=== PATIENT | male | born 1980 | race Caucasian/White ===

== ENCOUNTER 2018-07-22 11:45 | Emergency (ER) | payer OTHER ==
[~2018-07-22] VITALS: Ht 193 cm; Wt 81.7 kg
[~2018-07-22 11:45] MED LIST: Augmentin 875-1 EACH PO
== END 2018-07-22 12:54 | disposition home or self-care (01) ==
LOC: ER 11:45
DX: T40.2X1A Poisoning by other opioids, accidental (unintentional), initial encounter (principal); F10.10 Alcohol abuse, uncomplicated; F17.210 Nicotine dependence, cigarettes, uncomplicated
CPT/HCPCS: 36415; 99284

== ENCOUNTER 2019-03-21 12:15 | Emergency (ER) | payer OTHER ==
[~2019-03-21] VITALS: Ht 193 cm; Wt 81.7 kg
== END 2019-03-21 14:35 | disposition home or self-care (01) ==
LOC: ER 12:15
DX: S00.12XA Contusion of left eyelid and periocular area, initial encounter (principal); S00.11XA Contusion of right eyelid and periocular area, initial encounter; H11.31 Conjunctival hemorrhage, right eye; Y04.8XXA Assault by other bodily force, initial encounter
CPT/HCPCS: 70450; 99284-25

== ENCOUNTER 2023-03-24 20:43 | Observation (INO) | payer OTHER ==
[~2023-03-24] VITALS: Ht 193 cm; Wt 90.7 kg
[2023-03-24 21:39] LABS: BASOPHILS ABSOLUTE AUTO 0.03 K/mm3 (0.00-0.23); BASOPHILS PERCENT AUTO 0 % (0-2); EOSINOPHILS ABSOLUTE AUTO 0.32 K/mm3 (0.00-0.68); EOSINOPHILS PERCENT AUTO 5 % (0-6); Hematocrit 40.3 % (37.0-53.0); Hemoglobin 14.2 g/dL (13.5-17.5); IMMATURE GRAN ABSOLUTE AUTO 0.01 K/mm3 (0.00-0.10); IMMATURE GRAN PERCENT AUTO 0 % (0-1); LYMPHOCYTES ABSOLUTE AUTO 3.02 K/mm3 (0.84-5.20); LYMPHOCYTES PERCENT AUTO 45 % (21-46); MONOCYTES ABSOLUTE AUTO 0.83 K/mm3 (0.16-1.47); MONOCYTES PERCENT AUTO 12 % (4-13); Mean Corpuscular HGB 31.8 pg (26.0-34.0); Mean Corpuscular HGB Conc 35.2 g/dL (31.5-36.5); Mean Corpuscular Volume 90 fL (80-100); Mean Platelet Volume 9.5 fL (9.1-12.4); NEUTROPHILS ABSOLUTE AUTO 2.48 K/mm3 (1.96-9.15); NEUTROPHILS PERCENT AUTO 37 % (41-73); Platelet Count 301 K/mm3 (150-400); RDW Coefficient Variation 12.3 % (11.7-14.2); Red Blood Cell Count 4.46 M/mm3 (4.30-5.90); White Blood Cell Count 6.69 K/mm3 (4.00-11.30)
[2023-03-24 21:57] LABS: Alanine Aminotransfer (ALT/SGP 51 U/L (12-78); Albumin, Blood 3.8 g/dL (3.4-5.0); Alk Phos 121 U/L (50-136); Anion Gap 10 mmol/L (6-16); Aspartate Aminotrans (AST/SGOT 34 U/L (12-37); Bilirubin, Total 0.5 mg/dL (0.1-1.0); Blood Urea Nitrogen 18 mg/dL (8-24); Bun/Creatinine Ratio 21.4 (12.0-20.0); CO2, Blood 24 mmol/L (21-32); Calcium, Blood 8.5 mg/dL (8.5-10.1); Chloride, Blood 109 mmol/L (98-108); Creatinine, Blood 0.84 mg/dL (0.60-1.20); Globulin, Blood 3.7 g/dL (2.2-4.0); Glomerular Filtration Rate 112 (60-); Glucose, Blood 102 mg/dL (70-99); Potassium, Blood 3.7 mmol/L (3.5-5.5); Sodium, Blood 143 mmol/L (136-145); Total Protein, Blood 7.5 g/dL (6.4-8.2)
[2023-03-24 22:14] LABS: Ethanol (Alcohol), Blood, Med 188 mg/dL; Salicylate 2.6 mg/dL (2.8-20.0)
[2023-03-24 22:47] LABS: Acetaminophen, Random <2.0 ug/mL (10.0-30.0)
[2023-03-24 23:25] LABS: Source, Urine Clean Catch
[2023-03-24 23:30] LABS: Appearance, Urine Clear (Clear); Bilirubin, Urine Neg (Neg); Blood, Urine Neg (Neg); Color, Urine Yellow (P-Yellow); Glucose Qualitative, Urine Neg (Neg); Ketones, Urine Neg (Neg); Leukocyte Esterase, Urine Neg (Neg); Nitrite, Urine Neg (Neg); Protein, Urine 1+ (Neg); Urobilinogen, Urine NORM (Normal)
[2023-03-24 23:44] LABS: U Cannabinoids Screen DETECTED; U Methamphetamine Screen DETECTED
[2023-03-24 23:45] LABS: U Amphetamine Screen Not Detected; U Barbituate Screen Not Detected; U Benzodiazapine Screen Not Detected; U Buprenorphine Screen Not Detected; U Cocaine Screen Not Detected; U Methadone Screen Not Detected; U Opiates Screen Not Detected; U Oxycodone Screen Not Detected; U Phencyclidine Screen Not Detected; U Propoxyphene Screen Not Detected
[2023-03-25 11:00] VITALS: BP 128/86
== END 2023-03-25 11:15 | disposition home or self-care (01) ==
LOC: ER 20:43 → EOR 20:44
PROVIDERS: Emergency Medicine; ADMIT Student in an Organized Health Care Education/Training Program
DX: F34.1 Dysthymic disorder (principal); F17.200 Nicotine dependence, unspecified, uncomplicated; F10.129 Alcohol abuse with intoxication, unspecified; F15.10 Other stimulant abuse, uncomplicated; F41.9 Anxiety disorder, unspecified; Z59.00 Homelessness unspecified
CPT/HCPCS: 80053; 85025; 93005; 93010; 99285-25; G0378; G0480

== ENCOUNTER 2023-04-02 13:24 | Emergency (ER) | payer OTHER ==
[~2023-04-02] VITALS: Ht 193 cm; Wt 81.7 kg
[2023-04-02 13:33] VITALS: BP 120/84
[2023-04-02] MEDS ORDERED: CEPH500 PO (14:56)
== END 2023-04-02 15:01 | disposition home or self-care (01) ==
LOC: ER 13:24
DX: L03.031 Cellulitis of right toe (principal); F17.200 Nicotine dependence, unspecified, uncomplicated
CPT/HCPCS: 99283

== ENCOUNTER 2023-10-12 12:58 | Emergency (ER) | payer OTHER ==
[~2023-10-12] VITALS: Ht 193 cm; Wt 90.7 kg
[~2023-10-12 12:58] MED LIST changes: +CEPH500 PO
[2023-10-12 13:36] VITALS: BP 146/102
== END 2023-10-12 14:36 | disposition left against medical advice (07) ==
LOC: ER 12:58
DX: L02.31 Cutaneous abscess of buttock (principal); Z53.29 Procedure and treatment not carried out because of patient's decision for other reasons
CPT/HCPCS: 99281

== ENCOUNTER → 2023-10-13 | Outpatient (CLI) | payer OTHER | END | disposition home or self-care (01) | LOC: LAB SHORT 17:25 → LAB 17:25 | DX: L03.317 Cellulitis of buttock (principal); L02.31 Cutaneous abscess of buttock | CPT/HCPCS: 87070; 87075; 87077; 87147; 87186; 87205 ==

== ENCOUNTER → 2023-12-22 | Outpatient (CLI) | payer OTHER ==
[~2023-12-22] MED LIST changes: +AMOCLA875 PO
== END | disposition home or self-care (01) ==
LOC: LAB 15:30 → LAB SHORT 15:30
DX: T80.29XA Infection following other infusion, transfusion and therapeutic injection, initial encounter (principal)
CPT/HCPCS: 87070; 87075; 87077; 87147; 87186; 87205

== ENCOUNTER 2024-03-29 19:01 | Emergency (ER) | payer OTHER ==
[~2024-03-29] VITALS: Ht 190.5 cm; Wt 77.1 kg
[~2024-03-29 19:01] MED LIST changes: +Bactrim Ds Tab1 EACH PO; +SULTRIDS PO
[2024-03-29] MEDS ORDERED: Ondansetron HCl 2 MG / ML 2ML Vial IV ONE (19:20)
[2024-03-29] MEDS ORDERED: Lactated Ringer's 1,000 ML IV ONE ×3 (19:20→21:35)
[2024-03-29 19:44] LABS: BASOPHILS ABSOLUTE AUTO 0.02 K/mm3 (0.00-0.23); BASOPHILS PERCENT AUTO 0 % (0-2); EOSINOPHILS ABSOLUTE AUTO 0.02 K/mm3 (0.00-0.68); EOSINOPHILS PERCENT AUTO 0 % (0-6); Hematocrit 37.8 % (37.0-53.0); Hemoglobin 12.6 g/dL (13.5-17.5); IMMATURE GRAN ABSOLUTE AUTO 0.03 K/mm3 (0.00-0.10); IMMATURE GRAN PERCENT AUTO 1 % (0-1); LYMPHOCYTES ABSOLUTE AUTO 0.54 K/mm3 (0.84-5.20); LYMPHOCYTES PERCENT AUTO 8 % (21-46); MONOCYTES ABSOLUTE AUTO 0.05 K/mm3 (0.16-1.47); MONOCYTES PERCENT AUTO 1 % (4-13); Mean Corpuscular HGB 31.3 pg (26.0-34.0); Mean Corpuscular HGB Conc 33.3 g/dL (31.5-36.5); Mean Corpuscular Volume 94 fL (80-100); Mean Platelet Volume 9.4 fL (9.1-12.4); NEUTROPHILS ABSOLUTE AUTO 5.82 K/mm3 (1.96-9.15); NEUTROPHILS PERCENT AUTO 90 % (41-73); Platelet Count 224 K/mm3 (150-400); Red Blood Cell Count 4.03 M/mm3 (4.30-5.90); White Blood Cell Count 6.48 K/mm3 (4.00-11.30)
[2024-03-29 19:57] LABS: Albumin, Blood 3.3 g/dL (3.4-5.0); Bilirubin, Total 0.8 mg/dL (0.1-1.0); Calcium, Blood 8.2 mg/dL (8.5-10.1); Creatinine, Blood 1.2 mg/dL (0.60-1.20); Globulin, Blood 3.2 g/dL (2.2-4.0); Magnesium, Blood 1.9 mg/dL (1.6-2.4); Total Protein, Blood 6.5 g/dL (6.4-8.2)
[2024-03-29] MEDS ORDERED: Acetaminophen 500 MG Tab PO ONE (21:05)
[2024-03-29 22:30] VITALS: BP 110/69
== END 2024-03-29 22:55 | disposition home or self-care (01) ==
LOC: ER 19:01
PROVIDERS: Physician Assistant
DX: T67.5XXA Heat exhaustion, unspecified, initial encounter (principal); X30.XXXA Exposure to excessive natural heat, initial encounter; E86.0 Dehydration; R11.11 Vomiting without nausea; F12.10 Cannabis abuse, uncomplicated; F17.210 Nicotine dependence, cigarettes, uncomplicated; Z79.899 Other long term (current) drug therapy
CPT/HCPCS: 80053; 83735; 85025; 96361; 96374; 99284-25; A9270; J2405; J7120

== ENCOUNTER 2024-06-28 23:23 | Inpatient (IN) | payer OTHER ==
[~2024-06-28] VITALS: Ht 193 cm; Wt 75.0 kg
[~2024-06-28 23:23] MED LIST changes: +ACET325 PO; +VISBIOME 112.51 EACH PO
[2024-06-29] MEDS ORDERED: CeFAZolin Sodium 2,000 MG in NS 100 ML IV ONE (06:40)
[2024-06-29] MEDS ORDERED: CefTRIAXone Sodium 1,000 MG in NS 50 ML IV ONE (06:40)
[2024-06-29] MEDS ORDERED: Clindamycin 900mg in D5W 50ML 50 ML IV ONE ×2 (06:40→10:45)
[2024-06-29 07:05] LABS: BASOPHILS ABSOLUTE AUTO 0.04 K/mm3 (0.00-0.23); BASOPHILS PERCENT AUTO 0 % (0-2); EOSINOPHILS ABSOLUTE AUTO 0.35 K/mm3 (0.00-0.68); EOSINOPHILS PERCENT AUTO 2 % (0-6); Hematocrit 36.4 % (37.0-53.0); Hemoglobin 12.2 g/dL (13.5-17.5); IMMATURE GRAN ABSOLUTE AUTO 0.05 K/mm3 (0.00-0.10); IMMATURE GRAN PERCENT AUTO 0 % (0-1); LYMPHOCYTES PERCENT AUTO 17 % (21-46); MONOCYTES ABSOLUTE AUTO 1.67 K/mm3 (0.16-1.47); MONOCYTES PERCENT AUTO 10 % (4-13); Mean Corpuscular HGB 30.7 pg (26.0-34.0); Mean Corpuscular HGB Conc 33.5 g/dL (31.5-36.5); Mean Corpuscular Volume 92 fL (80-100); Mean Platelet Volume 8.7 fL (9.1-12.4); NEUTROPHILS ABSOLUTE AUTO 11.36 K/mm3 (1.96-9.15); NEUTROPHILS PERCENT AUTO 70 % (41-73); Platelet Count 349 K/mm3 (150-400); RDW Coefficient Variation 13.2 % (11.7-14.2); RDW Standard Deviation 44.9 fL (35.1-46.3); Red Blood Cell Count 3.97 M/mm3 (4.30-5.90); White Blood Cell Count 16.17 K/mm3 (4.00-11.30)
[2024-06-29 07:27] LABS: Albumin, Blood 2.7 g/dL (3.4-5.0); Albumin/Globulin Ratio 0.6 (0.8-1.8); Bilirubin, Total 0.7 mg/dL (0.1-1.0); Bun/Creatinine Ratio 15.4 (12.0-20.0); Calcium, Blood 8.8 mg/dL (8.5-10.1); Creatinine, Blood 0.72 mg/dL (0.60-1.20); Globulin, Blood 4.8 g/dL (2.2-4.0); Potassium, Blood 3.6 mmol/L (3.5-5.5); Total Protein, Blood 7.5 g/dL (6.4-8.2)
[2024-06-29] MEDS ORDERED: OxyCODONE HCL 5 MG TAB PO PRN (10:10)
[2024-06-29] MEDS ORDERED: Acetaminophen 325 MG TABLET PO PRN (10:10)
[2024-06-29] MEDS ORDERED: Ketorolac Tromethamine 30mg Vial IV PRN (10:10)
[2024-06-29] MEDS ORDERED: FLU VACC TS2024-25(6MOS UP)/PF 45 MCG/0.5 ML SYRINGE IM SCH (10:10)
[2024-06-29] MEDS ORDERED: Vancomycin HCL 1,750 MG in NS 500 ML IV ONE (10:40)
[2024-06-29 14:35] VITALS: BP 113/71
[2024-06-29] MEDS ORDERED: NS 250 ML IV PRN (15:35)
[2024-06-29] MEDS ORDERED: ATOR20 PO (15:49)
[2024-06-29] MEDS ORDERED: CeFAZolin Sodium 2,000 MG in NS 100 ML IV SCH (16:00)
[2024-06-29] MEDS ORDERED: ATOR80 PO (17:00)
--- NOTE | 2024-06-29 17:00 | NUR ---
PT ADMITTED TO ROOM 338 AT 1425 FROM ED, WHEELCHAIR TO BED INDEPENDANT, STEADY ON FEET. A/O X4, PLEASANT AND COOPERATIVE. ORIENTED TO ROOM SET UP, CALL LIGHT AND SAFETY, WOUNDS WITH PACKING AND NO EXTERNAL DRESSING PRESENT, RN REWRAPPED AND SECURES. GOT PT FOOD AND FLUIDS.
[2024-06-29 19:45] VITALS: BP 122/88
[2024-06-29] MEDS ORDERED: Vancomycin HCL 1,500 MG in NS 250 ML IV SCH (23:00)
--- NOTE | 2024-06-30 05:18 | NUR ---
SHIFT SUMMARY NOC PT A/O X 4. PLEASANT AND COOPERATIVE WITH CARE. VSS. NO ACUTE CHANGES TO REPORT. WOUND DRESSINGS ON L BICEP AND RFA IN PLACE C/D/I. PT RECEIVING IV ABX FOR CELLULITIS IN BOTH. WOUND CULTURE STILL UNCOLLECTED AT THIS TIME. PT USING BEDSIDE URINAL INDEPENDENTLY AT NIGHT. ON CONTACT ISOLATION FOR MRSA. PT HAS NOT REQUESTED PAIN RX THUS FAR. PT CURRENTLY RESTING WITH BED IN LOWEST POSITION, AND CALL LIGHT WITHIN REACH.
[2024-06-30 05:35] LABS: BASOPHILS ABSOLUTE AUTO 0.04 K/mm3 (0.00-0.23); BASOPHILS PERCENT AUTO 0 % (0-2); EOSINOPHILS ABSOLUTE AUTO 0.31 K/mm3 (0.00-0.68); EOSINOPHILS PERCENT AUTO 3 % (0-6); Hematocrit 33.9 % (37.0-53.0); Hemoglobin 11.4 g/dL (13.5-17.5); IMMATURE GRAN ABSOLUTE AUTO 0.03 K/mm3 (0.00-0.10); IMMATURE GRAN PERCENT AUTO 0 % (0-1); LYMPHOCYTES ABSOLUTE AUTO 2.43 K/mm3 (0.84-5.20); LYMPHOCYTES PERCENT AUTO 26 % (21-46); MONOCYTES ABSOLUTE AUTO 0.83 K/mm3 (0.16-1.47); MONOCYTES PERCENT AUTO 9 % (4-13); Mean Corpuscular HGB 30.8 pg (26.0-34.0); Mean Corpuscular HGB Conc 33.6 g/dL (31.5-36.5); Mean Corpuscular Volume 92 fL (80-100); Mean Platelet Volume 8.5 fL (9.1-12.4); NEUTROPHILS ABSOLUTE AUTO 5.89 K/mm3 (1.96-9.15); NEUTROPHILS PERCENT AUTO 62 % (41-73); Platelet Count 343 K/mm3 (150-400); RDW Coefficient Variation 13.2 % (11.7-14.2); RDW Standard Deviation 44.4 fL (35.1-46.3); White Blood Cell Count 9.53 K/mm3 (4.00-11.30)
[2024-06-30 06:41] LABS: Albumin, Blood 2.5 g/dL (3.4-5.0); Albumin/Globulin Ratio 0.5 (0.8-1.8); Bilirubin, Total 0.5 mg/dL (0.1-1.0); Bun/Creatinine Ratio 16.9 (12.0-20.0); Calcium, Blood 8.9 mg/dL (8.5-10.1); Creatinine, Blood 0.65 mg/dL (0.60-1.20); Globulin, Blood 4.6 g/dL (2.2-4.0); Potassium, Blood 3.9 mmol/L (3.5-5.5); Total Protein, Blood 7.1 g/dL (6.4-8.2)
[2024-06-30 07:58] VITALS: BP 118/85
[2024-06-30] MEDS ORDERED: Enoxaparin 40 MG/0.4 ML SYR SC SCH (09:00)
[2024-06-30] MEDS ORDERED: Lactobacil 2-S.Thermo-Bifido 1 1 Cap PO SCH (09:00)
[2024-06-30 15:16] VITALS: BP 106/55
--- NOTE | 2024-06-30 17:52 | NUR ---
SHIFT SUMMARY: PT A/O X4. PLEASANT AND COOPERATIVE WITH CARE. WOUND CULTURES OBTAINED AND SENT THIS SHIFT FROM [facility] WOUNDS AND NARES. WOUNDS CLEANSED AND REDRESSED THIS SHIFT. MEDICATED FOR PAIN PRIOR TO WOUND CHANGE. ON CONTACT PRECAUTIONS. PT MOTHER IN TO SEE PT THIS AM AND EVENING. STATES SHE BELIEVES PT IS GOING THROUGH W/D. IV ABX COMPLETED W/O COMPLICATIONS. VSS. NO FURTHER C/O PAIN THIS SHIFT. SBA TO RESTROOM. CALL LIGHT IN REACH. BED IN LOWEST POSITION.
[2024-06-30 17:57] LABS: HIV 1,2 COMBO ANTIGEN/ANTIBODY Negative (Negative)
[2024-06-30 20:21] VITALS: BP 123/75
[2024-06-30] MEDS ORDERED: Atorvastatin 40 MG Tab PO SCH (21:00)
[2024-06-30 23:55] LABS: Vancomycin, Trough 10.5 ug/mL (5.0-10.0)
[2024-07-01 03:24] VITALS: BP 119/74
--- NOTE | 2024-07-01 06:16 | NUR ---
SHIFT SUMMARY PT IS ALERT AND ORIENTED TIMES 4. PT IS RECEPTIVE TO CARE AND ABLE TO AMBULATE INDEPENDENTLY AND USE BEDSIDE URINAL AT NIGHT. CONTACT ISOLATION FOR MRSA. PT ABLE TO MAKE NEEDS KNOWN. PT CURRENTLY RESTING WITH BED IN LOWEST POSITION, AND CALL LIGHT WITHIN REACH. PT A/O X 4. PLEASANT AND COOPERATIVE WITH CARE. VSS. NO ACUTE CHANGES TO REPORT. WOUND DRESSINGS ON L BICEP AND RFA IN PLACE C/D/I. PT RECEIVING IV ABX FOR CELLULITIS IN BOTH. WOUND CULTURE STILL UNCOLLECTED AT THIS TIME. PT USING BEDSIDE URINAL INDEPENDENTLY AT NIGHT. ON CONTACT ISOLATION FOR MRSA. PT HAS NOT REQUESTED PAIN RX THUS FAR. PT CURRENTLY RESTING WITH BED IN LOWEST POSITION, AND CALL LIGHT WITHIN REACH.
[2024-07-01 07:31] VITALS: BP 115/73
[2024-07-01 08:47] LABS: BASOPHILS ABSOLUTE AUTO 0.04 K/mm3 (0.00-0.23); BASOPHILS PERCENT AUTO 1 % (0-2); EOSINOPHILS ABSOLUTE AUTO 0.35 K/mm3 (0.00-0.68); EOSINOPHILS PERCENT AUTO 4 % (0-6); Hematocrit 36.9 % (37.0-53.0); Hemoglobin 12.1 g/dL (13.5-17.5); IMMATURE GRAN ABSOLUTE AUTO 0.02 K/mm3 (0.00-0.10); IMMATURE GRAN PERCENT AUTO 0 % (0-1); LYMPHOCYTES PERCENT AUTO 25 % (21-46); MONOCYTES ABSOLUTE AUTO 0.82 K/mm3 (0.16-1.47); MONOCYTES PERCENT AUTO 9 % (4-13); Mean Corpuscular HGB 30.3 pg (26.0-34.0); Mean Corpuscular HGB Conc 32.8 g/dL (31.5-36.5); Mean Corpuscular Volume 93 fL (80-100); Mean Platelet Volume 8.7 fL (9.1-12.4); NEUTROPHILS ABSOLUTE AUTO 5.38 K/mm3 (1.96-9.15); NEUTROPHILS PERCENT AUTO 61 % (41-73); Platelet Count 389 K/mm3 (150-400); RDW Standard Deviation 44.3 fL (35.1-46.3); Red Blood Cell Count 3.99 M/mm3 (4.30-5.90); White Blood Cell Count 8.81 K/mm3 (4.00-11.30)
[2024-07-01 09:19] LABS: Bun/Creatinine Ratio 13.2 (12.0-20.0); Calcium, Blood 8.9 mg/dL (8.5-10.1); Creatinine, Blood 0.53 mg/dL (0.60-1.20); Potassium, Blood 3.5 mmol/L (3.5-5.5)
[2024-07-01 14:22] VITALS: BP 135/82
--- NOTE | 2024-07-01 17:33 | NUR ---
SHIFT SUMMARY; NO ACUTE CHANGES IN CONDITION NOTED DURING DAY. PATIENT VERY HUNGRY DURING DAY. ASKING REPEATEDLY FOR SNACKS AND DRINKS ALL DAY. WOUND CARE TO LEFT AND RIGHT ARMS DONE. PATIENT REFUSES SHOWER. VITAL SIGNS ARE STABLE AND WNL. PLAN FOR ANTIBIOTIC THERAPY AND THEN DC.
[2024-07-01 19:54] VITALS: BP 123/75
[2024-07-01 23:17] LABS: Vancomycin, Trough 9.3 ug/mL (5.0-10.0)
[2024-07-02 04:21] VITALS: BP 134/91
[2024-07-02 07:54] VITALS: BP 131/88
[2024-07-02] MEDS ORDERED: VISBIOME 112.51 EACH PO (12:25)
[2024-07-02] MEDS ORDERED: CEPH500 PO (12:26)
[2024-07-02] MEDS ORDERED: TRAM50 PO (12:26)
[2024-07-02] MEDS ORDERED: Acetaminophen650 M1 PO (12:26)
--- NOTE | 2024-07-02 13:44 | NUR ---
DISCHARE SUMMARY: PT DISCHARGED AT 1340, PT GOT DRESSED AND AMBULATED INTO WHEELCHAIR. UNDERSTOOD IMPORTANCE OF TAKING THE ENTIRE ANTIBIOTIC REGIMENT PRESCRIBED. UNDERSTOOD THE EDUCATION AND IMPORTANCE OF PCP FOLLOW UP. AMBULATED SELF OUT OF WHEELCHAIR FROM [facility] ENTR[facility]. IV REMOVED WITH NO ISSUE.
--- NOTE | 2024-07-02 14:18 | NUR ---
THIS CLARIFIER OPERATOR HELPER HAS REVIEWED AND AGREES WITH ALL NOTES AND ASSESSMENTS BY FLORENTIN NAIDU.
== END 2024-07-02 13:52 | disposition home or self-care (01) | DRG 872 ==
LOC: ER 23:23 → ERHOLD 06-29 10:04 → MEDS 06-29 14:27
PROVIDERS: Emergency Medicine; Registered Nurse; ADMIT Hospitalist
PROC: 0J9F3ZZ Drainage of Left Upper Arm Subcutaneous Tissue and Fascia, Percutaneous Approach (ICD-10-PCS; principal; 2024-06-29)
PROC: 0J9D3ZZ Drainage of Right Upper Arm Subcutaneous Tissue and Fascia, Percutaneous Approach (ICD-10-PCS; 2024-06-29)
PROC: 3E03329 Introduction of Other Anti-infective into Peripheral Vein, Percutaneous Approach (ICD-10-PCS; 2024-06-29)
DX: A41.02 Sepsis due to Methicillin resistant Staphylococcus aureus (principal); L03.114 Cellulitis of left upper limb; L03.115 Cellulitis of right lower limb; L02.414 Cutaneous abscess of left upper limb; F15.20 Other stimulant dependence, uncomplicated; Z59.00 Homelessness unspecified; F10.20 Alcohol dependence, uncomplicated; G40.909 Epilepsy, unspecified, not intractable, without status epilepticus; F41.9 Anxiety disorder, unspecified; F32.A Depression, unspecified; F17.210 Nicotine dependence, cigarettes, uncomplicated; Z79.899 Other long term (current) drug therapy; Z98.890 Other specified postprocedural states
CPT/HCPCS: 10061; 36415; 73201; 80048; 80053; 80202; 83605; 85025; 86141; 87040; 87070; 87075; 87147; 87205; 87389; 96365-59; 96367-59; 96375-59; 99284-25; A9270; G0378; J0690; J0696; J1650; J3370; J7040; J7050; Q9967

== ENCOUNTER 2024-07-04 03:01 | Emergency (ER) | payer OTHER ==
[~2024-07-04] VITALS: Ht 193 cm; Wt 75.3 kg
[~2024-07-04 03:01] MED LIST changes: +ATOR20 PO; +ATOR80 PO; +Acetaminophen650 M1 PO; +TRAM50 PO
[2024-07-04 05:06] VITALS: BP 139/89
== END 2024-07-04 05:08 | disposition home or self-care (01) ==
LOC: ER 03:01
DX: L02.414 Cutaneous abscess of left upper limb (principal); F17.210 Nicotine dependence, cigarettes, uncomplicated; Z79.899 Other long term (current) drug therapy
CPT/HCPCS: 99282

== ENCOUNTER 2024-08-14 12:36 | Emergency (ER) | payer OTHER ==
[~2024-08-14] VITALS: Ht 193 cm; Wt 72.6 kg
[~2024-08-14 12:36] MED LIST changes: +CLIN150 PO; +MONDOXYNE NL100 MG PO
[2024-08-14 12:41] VITALS: BP 133/87
[2024-08-14] MEDS ORDERED: CLIN150 PO (12:43)
== END 2024-08-14 12:54 | disposition home or self-care (01) ==
LOC: ER 12:36
DX: L02.512 Cutaneous abscess of left hand (principal); G40.909 Epilepsy, unspecified, not intractable, without status epilepticus; F17.210 Nicotine dependence, cigarettes, uncomplicated; Z86.14 Personal history of Methicillin resistant Staphylococcus aureus infection; Z59.89 Other problems related to housing and economic circumstances; Z79.899 Other long term (current) drug therapy
CPT/HCPCS: 99282

== ENCOUNTER 2024-09-11 12:35 | Emergency (ER) | payer OTHER ==
[~2024-09-11] VITALS: Ht 193 cm; Wt 86.2 kg
[2024-09-11] MEDS ORDERED: Metoclopramide HCl 5MG / ML 2ML Vial IM ONE (13:25)
[2024-09-11] MEDS ORDERED: Droperidol 5 mg/2 ml Vial IM ONE (13:25)
[2024-09-11] MEDS ORDERED: NS 1,000 ML IV SCH (13:45)
[2024-09-11 15:10] LABS: BASOPHILS ABSOLUTE AUTO 0.02 K/mm3 (0.00-0.23); BASOPHILS PERCENT AUTO 0 % (0-2); EOSINOPHILS ABSOLUTE AUTO 0.04 K/mm3 (0.00-0.68); EOSINOPHILS PERCENT AUTO 1 % (0-6); Hematocrit 40.1 % (37.0-53.0); Hemoglobin 13.1 g/dL (13.5-17.5); IMMATURE GRAN ABSOLUTE AUTO 0.01 K/mm3 (0.00-0.10); IMMATURE GRAN PERCENT AUTO 0 % (0-1); LYMPHOCYTES ABSOLUTE AUTO 1.54 K/mm3 (0.84-5.20); LYMPHOCYTES PERCENT AUTO 26 % (21-46); MONOCYTES ABSOLUTE AUTO 0.72 K/mm3 (0.16-1.47); MONOCYTES PERCENT AUTO 12 % (4-13); Mean Corpuscular HGB 30.2 pg (26.0-34.0); Mean Corpuscular HGB Conc 32.7 g/dL (31.5-36.5); Mean Corpuscular Volume 92 fL (80-100); Mean Platelet Volume 8.6 fL (9.1-12.4); NEUTROPHILS ABSOLUTE AUTO 3.53 K/mm3 (1.96-9.15); NEUTROPHILS PERCENT AUTO 60 % (41-73); Platelet Count 319 K/mm3 (150-400); RDW Coefficient Variation 13.7 % (11.7-14.2); RDW Standard Deviation 46.7 fL (35.1-46.3); Red Blood Cell Count 4.34 M/mm3 (4.30-5.90); White Blood Cell Count 5.86 K/mm3 (4.00-11.30)
[2024-09-11 15:26] LABS: Albumin, Blood 3.5 g/dL (3.4-5.0); Albumin/Globulin Ratio 0.8 (0.8-1.8); Bilirubin, Total 0.6 mg/dL (0.1-1.0); Bun/Creatinine Ratio 28.9 (12.0-20.0); Calcium, Blood 9.6 mg/dL (8.5-10.1); Creatinine, Blood 0.66 mg/dL (0.60-1.20); Globulin, Blood 4.3 g/dL (2.2-4.0); Potassium, Blood 3.7 mmol/L (3.5-5.5); Total Protein, Blood 7.8 g/dL (6.4-8.2)
[2024-09-11] MEDS ORDERED: ONDA4ODT MM (15:57)
[2024-09-11 16:35] VITALS: BP 150/100
== END 2024-09-11 16:45 | disposition home or self-care (01) ==
LOC: ER 12:35
PROVIDERS: Emergency Medicine
DX: R11.2 Nausea with vomiting, unspecified (principal); G40.909 Epilepsy, unspecified, not intractable, without status epilepticus; F17.210 Nicotine dependence, cigarettes, uncomplicated; Z79.899 Other long term (current) drug therapy
CPT/HCPCS: 80053; 83690; 85025; 96360; 96372-59; 99284-25; J1790; J2765; J7030

== ENCOUNTER 2025-01-27 17:46 | Emergency (ER) | payer OTHER ==
[~2025-01-27] VITALS: Ht 188 cm; Wt 81.7 kg
[~2025-01-27 17:46] MED LIST changes: +ONDA4ODT MM
[2025-01-27] MEDS ORDERED: Droperidol 5 mg/2 ml Vial IM ONE (17:55)
[2025-01-27] MEDS ORDERED: LORazepam 2 MG/ML 1ML Injection IM ONE (17:55)
[2025-01-27] MEDS ORDERED: Haloperidol Lactate Inj. 5 MG/ML Injection ONE (17:58)
[2025-01-27] MEDS ORDERED: Haloperidol Lactate Inj. 5 MG/ML Injection IM ONE (18:05)
[2025-01-27 18:25] LABS: BASOPHILS ABSOLUTE AUTO 0.03 K/mm3 (0.00-0.23); BASOPHILS PERCENT AUTO 0 % (0-2); EOSINOPHILS ABSOLUTE AUTO 0.02 K/mm3 (0.00-0.68); EOSINOPHILS PERCENT AUTO 0 % (0-6); Hematocrit 40.6 % (37.0-53.0); Hemoglobin 13.6 g/dL (13.5-17.5); IMMATURE GRAN ABSOLUTE AUTO 0.02 K/mm3 (0.00-0.10); IMMATURE GRAN PERCENT AUTO 0 % (0-1); LYMPHOCYTES ABSOLUTE AUTO 1.95 K/mm3 (0.84-5.20); LYMPHOCYTES PERCENT AUTO 21 % (21-46); MONOCYTES ABSOLUTE AUTO 0.81 K/mm3 (0.16-1.47); MONOCYTES PERCENT AUTO 9 % (4-13); Mean Corpuscular HGB 30.3 pg (26.0-34.0); Mean Corpuscular HGB Conc 33.5 g/dL (31.5-36.5); Mean Corpuscular Volume 90 fL (80-100); Mean Platelet Volume 8.9 fL (9.1-12.4); NEUTROPHILS ABSOLUTE AUTO 6.49 K/mm3 (1.96-9.15); NEUTROPHILS PERCENT AUTO 70 % (41-73); Platelet Count 352 K/mm3 (150-400); RDW Coefficient Variation 13.2 % (11.7-14.2); RDW Standard Deviation 44.2 fL (35.1-46.3); Red Blood Cell Count 4.49 M/mm3 (4.30-5.90); White Blood Cell Count 9.32 K/mm3 (4.00-11.30)
[2025-01-27] MEDS ORDERED: LORazepam 2 MG/ML 1ML Injection IV ONE (18:25)
[2025-01-27 18:50] LABS: Magnesium, Blood 2.4 mg/dL (1.6-2.4)
[2025-01-27] MEDS ORDERED: NS 1,000 ML IV SCH (18:50)
[2025-01-27 19:00] LABS: Albumin, Blood 4.5 g/dL (3.4-5.0); Albumin/Globulin Ratio 1.2 (0.8-1.8); Bilirubin, Total 0.8 mg/dL (0.1-1.0); Bun/Creatinine Ratio 22.6 (12.0-20.0); Calcium, Blood 11.1 mg/dL (8.5-10.1); Creatinine, Blood 1.59 mg/dL (0.60-1.20); Globulin, Blood 3.9 g/dL (2.2-4.0); Potassium, Blood 4.3 mmol/L (3.5-5.5); Total Protein, Blood 8.4 g/dL (6.4-8.2)
[2025-01-27 21:18] LABS: Source, Urine Clean Catch
[2025-01-27 21:24] LABS: Appearance, Urine Clear (Clear); Bilirubin, Urine Neg (Neg); Blood, Urine Neg (Neg); Color, Urine Yellow (P-Yellow); Glucose Qualitative, Urine Neg (Neg); Ketones, Urine Neg (Neg); Leukocyte Esterase, Urine Neg (Neg); Nitrite, Urine Neg (Neg); Protein, Urine 2+ (Neg); Urobilinogen, Urine NORM (Normal)
[2025-01-27 21:35] LABS: Bacteria Few /hpf; Squamous Epithelial Cells Rare /hpf (Few); White Blood Cells, Urine 0-2 /hpf (0-5)
[2025-01-27 21:38] LABS: U Amphetamine Screen DETECTED; U Barbituate Screen Not Detected; U Benzodiazapine Screen Not Detected; U Buprenorphine Screen Not Detected; U Cannabinoids Screen DETECTED; U Cocaine Screen Not Detected; U Methadone Screen Not Detected; U Methamphetamine Screen DETECTED; U Opiates Screen Not Detected; U Oxycodone Screen Not Detected; U Phencyclidine Screen Not Detected
[2025-01-27 22:00] VITALS: BP 116/90
== END 2025-01-27 22:20 | disposition home or self-care (01) ==
LOC: ER 17:46
PROVIDERS: Student in an Organized Health Care Education/Training Program
DX: F15.10 Other stimulant abuse, uncomplicated (principal); R45.1 Restlessness and agitation; F17.210 Nicotine dependence, cigarettes, uncomplicated; Z79.899 Other long term (current) drug therapy
CPT/HCPCS: 80053; 81001; 83690; 83735; 85025; 93005; 93010; 96360; 96372-59; 99285-25; J1630; J1790; J2060; J7030

== ENCOUNTER 2025-02-24 14:55 | Inpatient (IN) | payer OTHER ==
[~2025-02-24] VITALS: Ht 193 cm; Wt 83.9 kg
[2025-02-24] MEDS ORDERED: Lactated Ringer's 1,000 ML IV ONE (18:00)
[2025-02-24 19:17] LABS: Albumin, Blood 3.7 g/dL (3.4-5.0); Albumin/Globulin Ratio 0.9 (0.8-1.8); Bun/Creatinine Ratio 15.2 (12.0-20.0); Calcium, Blood 9.7 mg/dL (8.5-10.1); Creatinine, Blood 0.73 mg/dL (0.60-1.20); Globulin, Blood 4.1 g/dL (2.2-4.0); Potassium, Blood 3.3 mmol/L (3.5-5.5); Total Protein, Blood 7.8 g/dL (6.4-8.2)
[2025-02-24 19:18] LABS: BASOPHILS ABSOLUTE AUTO 0.02 K/mm3 (0.00-0.23); BASOPHILS PERCENT AUTO 0 % (0-2); EOSINOPHILS ABSOLUTE AUTO 0.03 K/mm3 (0.00-0.68); EOSINOPHILS PERCENT AUTO 0 % (0-6); IMMATURE GRAN ABSOLUTE AUTO 0.02 K/mm3 (0.00-0.10); IMMATURE GRAN PERCENT AUTO 0 % (0-1); LYMPHOCYTES ABSOLUTE AUTO 1.65 K/mm3 (0.84-5.20); LYMPHOCYTES PERCENT AUTO 20 % (21-46); MONOCYTES ABSOLUTE AUTO 0.87 K/mm3 (0.16-1.47); MONOCYTES PERCENT AUTO 11 % (4-13); Mean Corpuscular HGB 30.4 pg (26.0-34.0); Mean Corpuscular HGB Conc 33.3 g/dL (31.5-36.5); Mean Corpuscular Volume 91 fL (80-100); Mean Platelet Volume 9.3 fL (9.1-12.4); NEUTROPHILS ABSOLUTE AUTO 5.68 K/mm3 (1.96-9.15); NEUTROPHILS PERCENT AUTO 69 % (41-73); Platelet Count 376 K/mm3 (150-400); RDW Coefficient Variation 12.3 % (11.7-14.2); Red Blood Cell Count 4.28 M/mm3 (4.30-5.90); White Blood Cell Count 8.27 K/mm3 (4.00-11.30)
[2025-02-24] MEDS ORDERED: Bisacodyl 10 MG Supp PR PRN (21:55)
[2025-02-24] MEDS ORDERED: NS 1,000 ML IV SCH (21:55)
[2025-02-24] MEDS ORDERED: Ondansetron 4 MG TAB PO PRN (22:00)
[2025-02-24] MEDS ORDERED: Magnesium Hydroxide Conc 10 ML UDC PO PRN (22:00)
[2025-02-24] MEDS ORDERED: ARIPiprazole 5 MG Tab PO SCH (22:00)
[2025-02-24] MEDS ORDERED: Acetaminophen 325 MG TABLET PO PRN (22:00)
[2025-02-24] MEDS ORDERED: HYDROcodone 5-APAP 325 TAB PO PRN (22:00)
[2025-02-24] MEDS ORDERED: Piperacillin/Tazobactam Sod 3.375 GM in NS 100 ML IV SCH (22:23)
[2025-02-24] MEDS ORDERED: Vancomycin HCL 1,500 MG in NS 250 ML IV ONE (22:30)
[2025-02-24 23:30] VITALS: BP 132/82
--- NOTE | 2025-02-25 04:35 | NUR ---
PUBLICATION DIRECTOR SUMMARY PT WAS A [facility] ADMIT [facility]. ADMITTED FOR INFECTION TO R ARM AC/ELBOW. PT REPORTS RECURRENT INFECTIONS IN AREA FROM IV DRUG INJECTIONS OVER THE LAST YEAR. AREA RED AND SWOLLEN BUT REDNESS WITH SOME IMPROVEMENT THROUGH THE NIGHT. AREA IS PAINFUL WITH MOVEMENT PER PT. PAIN CONTROLLED WITH OXYCODONE. GOOD CAP REFILL TO R HAND FINGERS, PT DOES REPORT SOME INTERMITTENT TINGLING TO R HAND WELL. PT IS AAOX4, PLEASANT AND COOPERATIVE. PT DENIED OTHER SKIN ISSUES OR WOUNDS BUT REFUSED TO REMOVE PANTS FOR FULL SKIN ASSESSMENT. PT REPORTS BEING HOMELESS AND LIVING IN A NEARBY CAMP AND DOES NOT REALLY WANT TO SEEK ANY TYPE OF REHAB AT THIS TIME. VITALS STABLE, PT HAS BEEN ABLE TO REST. WILL CONTINUE TO MONITOR.
[2025-02-25 04:50] VITALS: BP 137/82
[2025-02-25 05:31] LABS: BASOPHILS ABSOLUTE AUTO 0.02 K/mm3 (0.00-0.23); BASOPHILS PERCENT AUTO 0 % (0-2); EOSINOPHILS ABSOLUTE AUTO 0.15 K/mm3 (0.00-0.68); EOSINOPHILS PERCENT AUTO 2 % (0-6); Hematocrit 33.9 % (37.0-53.0); Hemoglobin 11.7 g/dL (13.5-17.5); IMMATURE GRAN ABSOLUTE AUTO 0.01 K/mm3 (0.00-0.10); IMMATURE GRAN PERCENT AUTO 0 % (0-1); LYMPHOCYTES ABSOLUTE AUTO 2.16 K/mm3 (0.84-5.20); LYMPHOCYTES PERCENT AUTO 28 % (21-46); MONOCYTES ABSOLUTE AUTO 1.18 K/mm3 (0.16-1.47); MONOCYTES PERCENT AUTO 15 % (4-13); Mean Corpuscular HGB 31.2 pg (26.0-34.0); Mean Corpuscular HGB Conc 34.5 g/dL (31.5-36.5); Mean Corpuscular Volume 90 fL (80-100); Mean Platelet Volume 9.4 fL (9.1-12.4); NEUTROPHILS ABSOLUTE AUTO 4.25 K/mm3 (1.96-9.15); NEUTROPHILS PERCENT AUTO 55 % (41-73); Platelet Count 330 K/mm3 (150-400); RDW Coefficient Variation 12.4 % (11.7-14.2); RDW Standard Deviation 40.6 fL (35.1-46.3); Red Blood Cell Count 3.75 M/mm3 (4.30-5.90); White Blood Cell Count 7.77 K/mm3 (4.00-11.30)
[2025-02-25 05:57] LABS: Bun/Creatinine Ratio 20.3 (12.0-20.0); Calcium, Blood 8.6 mg/dL (8.5-10.1); Creatinine, Blood 0.64 mg/dL (0.60-1.20); Potassium, Blood 3.3 mmol/L (3.5-5.5)
[2025-02-25] MEDS ORDERED: Potassium Chloride 20 MEQ TabCR PO ONE (07:00)
[2025-02-25 07:06] VITALS: BP 116/63
[2025-02-25] MEDS ORDERED: Vancomycin HCL 1,000 MG in NS 250 ML IV SCH (08:00)
[2025-02-25] MEDS ORDERED: Sennosides 8.6 MG Tab PO SCH (09:00)
[2025-02-25] MEDS ORDERED: Lactobacil 2-S.Thermo-Bifido 1 1 Cap PO SCH (09:00)
[2025-02-25] MEDS ORDERED: Famotidine 20 MG Tab PO SCH (09:00)
[2025-02-25] MEDS ORDERED: Heparin Sodium,Porcine 5,000 UNIT/0.5 ML SDV SC SCH (09:00)
[2025-02-25] MEDS ORDERED: Docusate Sodium 100 MG Cap PO SCH (09:00)
--- NOTE | 2025-02-25 09:01 | NUR ---
pt laying in bed awake, finishing breakfast, a/ox4, cooperative with care, follows commands well, reports that his arm hurts, can barely use his fingers on the right side, there is swelling, lungs are clear t/o, resp even and unlabored, on r/a, no cough noted, hrr, no edema noted, ppp+2, cap refill <3 sec, vs stable, afebrile, piv x3 to lac and lfa, sites are clear and patent, btx4, abd flat soft nontender, voids without diff, skin has swollen right elbow, maew, except right arm, juany, call light in reach.
[2025-02-25] MEDS ORDERED: Ketorolac Tromethamine 15mg Vial IV PRN (13:05)
[2025-02-25 15:49] VITALS: BP 118/78
--- NOTE | 2025-02-25 16:33 | NUR ---
Dr. Erwin saw pt and requested nurse to call radiology to asperate pt elbow, called and no one will be in until thursday, notified Dr. martinez of events, she was going to speak with Dr. Erwin. pt mom in to visit. pt elbow is notibly more swollen. recieved order for toradol, this worked well for him. call light in reach.
[2025-02-25] MEDS ORDERED: NS 250 ML IV PRN (17:35)
[2025-02-25 20:59] VITALS: BP 131/75
[2025-02-25 23:35] LABS: Vancomycin, Trough 9.5 ug/mL (5.0-10.0)
[2025-02-26 04:41] VITALS: BP 130/87
[2025-02-26 06:09] LABS: BASOPHILS ABSOLUTE AUTO 0.02 K/mm3 (0.00-0.23); BASOPHILS PERCENT AUTO 0 % (0-2); EOSINOPHILS ABSOLUTE AUTO 0.21 K/mm3 (0.00-0.68); EOSINOPHILS PERCENT AUTO 2 % (0-6); Hematocrit 33.7 % (37.0-53.0); Hemoglobin 11.2 g/dL (13.5-17.5); IMMATURE GRAN ABSOLUTE AUTO 0.02 K/mm3 (0.00-0.10); IMMATURE GRAN PERCENT AUTO 0 % (0-1); LYMPHOCYTES ABSOLUTE AUTO 2.32 K/mm3 (0.84-5.20); LYMPHOCYTES PERCENT AUTO 26 % (21-46); MONOCYTES ABSOLUTE AUTO 1.31 K/mm3 (0.16-1.47); MONOCYTES PERCENT AUTO 15 % (4-13); Mean Corpuscular HGB 30.4 pg (26.0-34.0); Mean Corpuscular HGB Conc 33.2 g/dL (31.5-36.5); Mean Corpuscular Volume 92 fL (80-100); Mean Platelet Volume 9.8 fL (9.1-12.4); NEUTROPHILS ABSOLUTE AUTO 4.93 K/mm3 (1.96-9.15); NEUTROPHILS PERCENT AUTO 56 % (41-73); Platelet Count 323 K/mm3 (150-400); RDW Coefficient Variation 12.4 % (11.7-14.2); RDW Standard Deviation 41.4 fL (35.1-46.3); Red Blood Cell Count 3.68 M/mm3 (4.30-5.90); White Blood Cell Count 8.81 K/mm3 (4.00-11.30)
--- NOTE | 2025-02-26 06:40 | NUR ---
BUS INSPECTOR SUMMARY PT AAOX4 AND INDEPENDENT IN ROOM. SWELLING TO RUE SLIGHTLY INCREASED COMPARED TO WHEN PT FIRST ARRIVED TO UNIT, HOWEVER REDNESS HAS IMPROVED. 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 CAP REFILL <3 SECONDS. NO CHANGE IN SWELLING THROUGH THE NIGHT. PAIN HAS BEEN WELL CONTROLLED WITH TORADOL WITH PT REPORTING A PAIN LEVEL OF 0-1 AFTER BEING MEDICATED. VSS, WCTM.
[2025-02-26 07:00] LABS: Albumin, Blood 2.4 g/dL (3.4-5.0); Albumin/Globulin Ratio 0.7 (0.8-1.8); Bilirubin, Total 0.4 mg/dL (0.1-1.0); Bun/Creatinine Ratio 18.2 (12.0-20.0); Calcium, Blood 8.4 mg/dL (8.5-10.1); Creatinine, Blood 0.72 mg/dL (0.60-1.20); Globulin, Blood 3.3 g/dL (2.2-4.0); Potassium, Blood 3.8 mmol/L (3.5-5.5)
[2025-02-26 07:01] LABS: Total Protein, Blood 5.7 g/dL (6.4-8.2)
[2025-02-26 07:08] VITALS: BP 131/77
--- NOTE | 2025-02-26 15:47 | NUR ---
REPORT TO [facility] MEDICAL FLOOR NURSE. PATIENT TRANSFERED TO ROOM 330, VIA WHEELCHAIR. PATIENT IS PLEASANT AND COOPERATIVE.
--- NOTE | 2025-02-26 15:52 | NUR ---
TRANSFER PT AOX4, COOPERATIVE, ABLE TO MAKE NEEDS KNOWN. PT TRANSFERRED TO BED IND, ON ROOM AIR, NO TELE. PT DOES REPORT CURRENTL METH USE. RIGHT ELBOW DRAINAGE PERFORMED TODAY. PT EXHIBITS MINIMAL MOVEMENT FOR RIGHT ARM. PT TO BE DC'D TO [facility].
[2025-02-26] MEDS ORDERED: Vancomycin HCL 1,250 MG in NS 250 ML IV SCH (16:00)
--- NOTE | 2025-02-26 17:01 | NUR ---
SHIFT SUMMARY PT AOX4, COOPERATIVE, ABLE TO MAKE NEEDS KOWN. NO NEW EVENTS TOOK PLACE FROM PREVIOUS NOTE. PT TOELRATING IV MEDICATION, LFA IV IS SENSITIVE TO INFUSION, OPTING TO USE LAC IV INSTEAD. ON CONTACT PRECAUTION FOR HX OF MRSA IN WOUND. BED IN LOWEST POSITION, CALL LIGHT WITHIN REACH.
[2025-02-26 17:51] VITALS: BP 132/78
[2025-02-26 18:01] LABS: Chlamydia Trachomatis Urine NOT DETECTED (NOT DETECT); Neisseria Gonorrhoea Urine NOT DETECTED (NOT DETECT)
[2025-02-26] MEDS ORDERED: NS 0 ML IV ONE (19:39)
[2025-02-26 19:44] VITALS: BP 135/81
[2025-02-27 02:44] VITALS: BP 132/75
--- NOTE | 2025-02-27 03:59 | NUR ---
PT IS ALERT AND ORIENTED X4 BUT HAS EPISODES OF RAMBLING. NO EVENTS DURING SHIFT. PT HAD C/O ELBOW PAIN- NORCO AND TYLENOL WERE GIVEN AND EFFECTIVE. PATIENT USED URINAL AND HAD ADEQUATE OUTPUT. PT RECEIVING IV ANTIBIOTICS. DEMONSTRATES PROPER USE OF CALL LIGHT AND ORIENTED TO OWN ABILITY. BED IN LOW POSITION AND WHEELS LOCKED. CALL LIGHT WITHIN REACH
[2025-02-27 07:02] LABS: BASOPHILS ABSOLUTE AUTO 0.03 K/mm3 (0.00-0.23); BASOPHILS PERCENT AUTO 0 % (0-2); EOSINOPHILS ABSOLUTE AUTO 0.23 K/mm3 (0.00-0.68); EOSINOPHILS PERCENT AUTO 3 % (0-6); Hematocrit 36.1 % (37.0-53.0); IMMATURE GRAN ABSOLUTE AUTO 0.01 K/mm3 (0.00-0.10); IMMATURE GRAN PERCENT AUTO 0 % (0-1); LYMPHOCYTES PERCENT AUTO 28 % (21-46); MONOCYTES ABSOLUTE AUTO 0.98 K/mm3 (0.16-1.47); MONOCYTES PERCENT AUTO 12 % (4-13); Mean Corpuscular HGB 30.2 pg (26.0-34.0); Mean Corpuscular HGB Conc 33.2 g/dL (31.5-36.5); Mean Corpuscular Volume 91 fL (80-100); NEUTROPHILS ABSOLUTE AUTO 4.69 K/mm3 (1.96-9.15); NEUTROPHILS PERCENT AUTO 57 % (41-73); Platelet Count 350 K/mm3 (150-400); RDW Coefficient Variation 12.4 % (11.7-14.2); RDW Standard Deviation 40.8 fL (35.1-46.3); Red Blood Cell Count 3.97 M/mm3 (4.30-5.90); White Blood Cell Count 8.24 K/mm3 (4.00-11.30)
[2025-02-27 07:15] VITALS: BP 135/83
[2025-02-27 07:19] LABS: Albumin, Blood 2.3 g/dL (3.4-5.0); Albumin/Globulin Ratio 0.6 (0.8-1.8); Bilirubin, Total 0.3 mg/dL (0.1-1.0); Bun/Creatinine Ratio 14.6 (12.0-20.0); Calcium, Blood 8.7 mg/dL (8.5-10.1); Creatinine, Blood 0.68 mg/dL (0.60-1.20); Globulin, Blood 3.7 g/dL (2.2-4.0); Potassium, Blood 3.6 mmol/L (3.5-5.5)
[2025-02-27] MEDS ORDERED: CefTRIAXone Sodium 2,000 MG in NS 100 ML IV SCH (12:13)
[2025-02-27 15:23] VITALS: BP 144/87
--- NOTE | 2025-02-27 17:07 | NUR ---
SHIFT SUMMARY PT AOX4, COOPERATIVE, ABLE TO MAKE NEEDS KNOWN. PT HAS BEEN IND IN ROOM FOR VOIDING. INFORMED BAKER BREAD TO DC LEFT LOWER FA IV DUE TO BURNING SENSATION DURING USE. ON ISOLATION FOR HX OF MRSA. ON ROOM AIR. WILL BE NPO AT MIDNIGHT FOR I&D PROCEDURE TOMORROW; NURSE NOTIFY ORDER PLACED. TOLERATING PO AND IV MEDICATION. BED IN LOWEST POSITION, CALL LIGHT WITHIN REACH.
[2025-02-27 17:14] LABS: Vancomycin, Trough 14.2 ug/mL (5.0-10.0)
[2025-02-27 20:27] VITALS: BP 135/84
[2025-02-28] VITALS (14 sets, daily range): BP systolic 96–145; BP diastolic 58–98
--- NOTE | 2025-02-28 03:05 | NUR ---
SHIFT SUMMARY NO ACUTE EVENTS DURING THIS SHIFT. NPO AFTER MIDNIGHT FOR PLANNED I&D RIGHT ELBOW THIS MORNING. PT IS VOIDING WELL, AMBULATES INDEPENDENTLY TO THE RESTROOM. VANCO INFUSED ORDERED. PT IS A/OX4, APPEARS WITHDRAWN. ABLE TO MAKE HIS NEEDS KNOWN AND COOPERATIVE WITH CARE. PRN NORCO 5MG ADMINISTERED AT HS FOR RIGHT ELBOW PAIN 5/10. PT REPORTS EFFECTIVE. BED AT THE LOWEST POSITION, CALL LIGHT W/I REACH.
[2025-02-28 05:35] LABS: BASOPHILS ABSOLUTE AUTO 0.04 K/mm3 (0.00-0.23); BASOPHILS PERCENT AUTO 0 % (0-2); EOSINOPHILS ABSOLUTE AUTO 0.35 K/mm3 (0.00-0.68); EOSINOPHILS PERCENT AUTO 3 % (0-6); Hematocrit 35.1 % (37.0-53.0); Hemoglobin 11.9 g/dL (13.5-17.5); IMMATURE GRAN ABSOLUTE AUTO 0.03 K/mm3 (0.00-0.10); IMMATURE GRAN PERCENT AUTO 0 % (0-1); LYMPHOCYTES ABSOLUTE AUTO 2.53 K/mm3 (0.84-5.20); LYMPHOCYTES PERCENT AUTO 24 % (21-46); MONOCYTES ABSOLUTE AUTO 1.22 K/mm3 (0.16-1.47); MONOCYTES PERCENT AUTO 12 % (4-13); Mean Corpuscular HGB 30.7 pg (26.0-34.0); Mean Corpuscular HGB Conc 33.9 g/dL (31.5-36.5); Mean Corpuscular Volume 91 fL (80-100); Mean Platelet Volume 8.9 fL (9.1-12.4); NEUTROPHILS ABSOLUTE AUTO 6.45 K/mm3 (1.96-9.15); NEUTROPHILS PERCENT AUTO 61 % (41-73); Platelet Count 392 K/mm3 (150-400); RDW Coefficient Variation 12.4 % (11.7-14.2); RDW Standard Deviation 40.9 fL (35.1-46.3); Red Blood Cell Count 3.88 M/mm3 (4.30-5.90); White Blood Cell Count 10.62 K/mm3 (4.00-11.30)
[2025-02-28 05:57] LABS: Bun/Creatinine Ratio 20.6 (12.0-20.0); Creatinine, Blood 0.68 mg/dL (0.60-1.20); Potassium, Blood 3.7 mmol/L (3.5-5.5)
[2025-02-28 12:08] LABS: HIV 1,2 COMBO ANTIGEN/ANTIBODY Negative (Negative)
[2025-02-28] MEDS ORDERED: Midazolam HCl 1MG / ML 2ML Vial IV PRN (14:35)
[2025-02-28] MEDS ORDERED: Lidocaine HCl 1% 5 ML SYR INJ ONE ×2 (14:35→17:50)
[2025-02-28] MEDS ORDERED: Lactated Ringer's 1,000 ML IV SCH ×3 (14:40→17:50)
--- NOTE | 2025-02-28 15:09 | NUR ---
#18 PIV TO LEFT UPPER ARM SITE CLEAR-FLUSHES WELL.
--- NOTE | 2025-02-28 15:10 | NUR ---
INTO SDS VIA WHEELCHAIR. PT DENIES PAIN. HISTORY AND ALERGIES REVIEWED.LUNGS CLEAR. NO NOTED SOB. SPO2 99% ON RA. NPO STATUS CONFIRMED. LEFT ELBOW RED AND SWOLLEN. CHLORHEXIDINE WIPE X 2.
[2025-02-28] MEDS ORDERED: propofoL 20 ML IV ONE (16:55)
[2025-02-28] MEDS ORDERED: FentaNYL Citrate 50 MCG/ML 2 ML Injection ONE (16:57)
--- NOTE | 2025-02-28 17:14 | NUR ---
02/28/25 1714 Hakeem Zavala BUP 0.5% WITH 1:200,000 EPI 30ML INJECTED SUBQ PER DR. SMITH
[2025-02-28] MEDS ORDERED: HYDROmorphone HCl/Pf 1MG SYR IV PRN (17:50)
[2025-02-28] MEDS ORDERED: FentaNYL Citrate 50 MCG/ML 2 ML Injection IV PRN ×2 (17:50→17:55)
[2025-02-28] MEDS ORDERED: Prochlorperazine Edisylate 10 mg Vial IV PRN (17:50)
[2025-02-28] MEDS ORDERED: Ondansetron HCl 2 MG / ML 2ML Vial IV PRN (17:50)
[2025-02-28] MEDS ORDERED: HYDROmorphone HCl/Pf 1MG SYR ONE (17:52)
[2025-02-28] MEDS ORDERED: Albuterol 2.5 MG/3 ML VIAL INH PRN (17:55)
--- NOTE | 2025-02-28 18:52 | NUR ---
SUMMARY PT CAME BACK FROM RECOVERY ROOM AT 1820. ON ROOM AIR. RIGHT ELBOW I&D COMPLETED BY DR. SMITH. DIANA DRAIN PLACED, GUAZE AND TIANA WRAP COVERING. PO ODALIS GIVEN THIS AM AND AFTER RETURNING FROM RECOVERY ROOM. REGULAR DIET STARTED. TOLERATING WELL.
[2025-03-01 00:16] VITALS: BP 146/101
[2025-03-01 04:07] VITALS: BP 135/85
--- NOTE | 2025-03-01 05:06 | NUR ---
SHIFT SUMMARY: AOX4. PT DID COMPLAIN OF PAIN TO R ELBOW, MEDICATED PER eMAR. ICE PACK GIVEN WELL. DRESSING TO R ELBOW IS C/D/I. CALL LIGHT IS WITHIN REACH. BED IS LOW AND LOCKED.
[2025-03-01 06:11] LABS: BASOPHILS ABSOLUTE AUTO 0.03 K/mm3 (0.00-0.23); BASOPHILS PERCENT AUTO 0 % (0-2); EOSINOPHILS ABSOLUTE AUTO 0.25 K/mm3 (0.00-0.68); EOSINOPHILS PERCENT AUTO 2 % (0-6); Hemoglobin 12.3 g/dL (13.5-17.5); IMMATURE GRAN ABSOLUTE AUTO 0.04 K/mm3 (0.00-0.10); IMMATURE GRAN PERCENT AUTO 0 % (0-1); LYMPHOCYTES ABSOLUTE AUTO 2.45 K/mm3 (0.84-5.20); LYMPHOCYTES PERCENT AUTO 22 % (21-46); MONOCYTES ABSOLUTE AUTO 1.16 K/mm3 (0.16-1.47); MONOCYTES PERCENT AUTO 11 % (4-13); Mean Corpuscular HGB 30.3 pg (26.0-34.0); Mean Corpuscular HGB Conc 33.2 g/dL (31.5-36.5); Mean Corpuscular Volume 91 fL (80-100); Mean Platelet Volume 9.1 fL (9.1-12.4); NEUTROPHILS ABSOLUTE AUTO 7.15 K/mm3 (1.96-9.15); NEUTROPHILS PERCENT AUTO 64 % (41-73); Platelet Count 405 K/mm3 (150-400); RDW Coefficient Variation 12.3 % (11.7-14.2); RDW Standard Deviation 41.3 fL (35.1-46.3); Red Blood Cell Count 4.06 M/mm3 (4.30-5.90); White Blood Cell Count 11.08 K/mm3 (4.00-11.30)
[2025-03-01 07:27] LABS: Bun/Creatinine Ratio 19.5 (12.0-20.0); Calcium, Blood 8.7 mg/dL (8.5-10.1); Creatinine, Blood 0.67 mg/dL (0.60-1.20); Potassium, Blood 3.9 mmol/L (3.5-5.5)
[2025-03-01 07:43] VITALS: BP 151/104
[2025-03-01 12:24] LABS: HEPATITIS A ANTIBODY, IGM Negative (Negative); HEPATITIS B CORE ANTIBODY, IGM Negative (Negative); HEPATITIS B SURFACE ANTIGEN Negative (Negative); HEPATITIS C AB CIA INTERP High Pos (Negative); HEPATITIS C ANTIBODY CIA INDEX >11.00 IV
[2025-03-01] MEDS ORDERED: ABILIFY MYCITE5 M2 PO (15:18)
[2025-03-01] MEDS ORDERED: ACET325 PO (15:18)
[2025-03-01] MEDS ORDERED: CEFTRIAXONE2 G1 IV (15:19)
[2025-03-01] MEDS ORDERED: HYDR1TAB94 PO (15:20)
[2025-03-01] MEDS ORDERED: FAMO20 PO (15:20)
[2025-03-01] MEDS ORDERED: ONDA4 PO (15:21)
[2025-03-01] MEDS ORDERED: VISBIOME 112.51 EACH PO (15:21)
[2025-03-01] MEDS ORDERED: CEPH500 PO (15:22)
[2025-03-01 15:43] VITALS: BP 137/92
--- NOTE | 2025-03-01 17:37 | NUR ---
1728 PATIENT DISCHARGED HOME, REPORT GVEN TO PATIENT AND MOTHER, BOTH TTED UNDERSTANDING AND DENIED FURTHER QUESTIONS, MEDICATED FOR PAIN PRIOR TO DISCHARGE
[2025-03-02 17:35] LABS: HCV QNT BY NAAT (IU/ML) Not Detected; HCV QNT BY NAAT (LOG IU/ML) Not Detected; HCV QNT BY NAAT INTERP Not Detected (Not Detected)
== END 2025-03-01 17:49 | disposition home or self-care (01) | DRG 549 ==
LOC: ER 14:55 → MEDS 22:36 → SURS 22:36 → MEDS 02-26 15:38
PROVIDERS: Emergency Medicine; Internal Medicine; Registered Nurse; ADMIT Hospitalist
PROC: 0R9L3ZZ Drainage of Right Elbow Joint, Percutaneous Approach (ICD-10-PCS; principal; 2025-02-26)
PROC: 0R9L3ZX Drainage of Right Elbow Joint, Percutaneous Approach, Diagnostic (ICD-10-PCS; 2025-02-26)
PROC: 3E03329 Introduction of Other Anti-infective into Peripheral Vein, Percutaneous Approach (ICD-10-PCS; 2025-02-26)
DX: M00.021 Staphylococcal arthritis, right elbow (principal); F15.20 Other stimulant dependence, uncomplicated; R45.851 Suicidal ideations; Z59.01 Sheltered homelessness; L03.113 Cellulitis of right upper limb; Z66 Do not resuscitate; F31.9 Bipolar disorder, unspecified; B95.61 Methicillin susceptible Staphylococcus aureus infection as the cause of diseases classified elsewhere; Z86.14 Personal history of Methicillin resistant Staphylococcus aureus infection; Z87.891 Personal history of nicotine dependence
CPT/HCPCS: 36415; 73201; 76882; 80048; 80053; 80074; 80202; 83605; 83690; 85025; 85651; 86140; 87040; 87070; 87075; 87077; 87147; 87185; 87186; 87205; 87389; 87491; 87522; 87591; 96360-59; 99284-25; A9270; J0696; J1171; J1885; J2543; J2704; J3010; J3370; J7030; J7050; J7120; Q9967

== ENCOUNTER 2025-03-02 07:23 | Day surgery (SDC) | payer OTHER ==
[~2025-03-02 07:23] MED LIST changes: +ABILIFY MYCITE5 M2 PO; +CEFTRIAXONE2 G1 IV; +FAMO20 PO; +HYDR1TAB94 PO; +ONDA4 PO
[2025-03-02] MEDS ORDERED: CefTRIAXone Sodium 2,000 MG in NS 100 ML IV SCH (08:45)
[2025-03-02 15:30] VITALS: BP 134/74
== END 2025-03-02 15:57 | disposition home or self-care (01) ==
LOC: ATC 07:23
DX: M00.9 Pyogenic arthritis, unspecified (principal); Z87.891 Personal history of nicotine dependence; Z66 Do not resuscitate
CPT/HCPCS: 96365; J0696

== ENCOUNTER 2025-05-09 10:38 | Observation (INO) | payer OTHER ==
[~2025-05-09] VITALS: Ht 193 cm; Wt 86.2 kg
[2025-05-09 11:21] VITALS: BP 141/85
[2025-05-09 11:28] LABS: BASOPHILS ABSOLUTE AUTO 0.02 K/mm3 (0.00-0.23); BASOPHILS PERCENT AUTO 0 % (0-2); EOSINOPHILS ABSOLUTE AUTO 0.12 K/mm3 (0.00-0.68); EOSINOPHILS PERCENT AUTO 2 % (0-6); Hematocrit 36.7 % (37.0-53.0); Hemoglobin 12.1 g/dL (13.5-17.5); IMMATURE GRAN ABSOLUTE AUTO 0.01 K/mm3 (0.00-0.10); IMMATURE GRAN PERCENT AUTO 0 % (0-1); LYMPHOCYTES ABSOLUTE AUTO 1.84 K/mm3 (0.84-5.20); LYMPHOCYTES PERCENT AUTO 34 % (21-46); MONOCYTES ABSOLUTE AUTO 0.62 K/mm3 (0.16-1.47); MONOCYTES PERCENT AUTO 11 % (4-13); Mean Corpuscular HGB Conc 33.0 g/dL (31.5-36.5); Mean Corpuscular Volume 93 fL (80-100); NEUTROPHILS ABSOLUTE AUTO 2.87 K/mm3 (1.96-9.15); NEUTROPHILS PERCENT AUTO 52 % (41-73); NRBC ABSOLUTE 0.00 K/mm3 (0.00-0.02); NRBC Auto 0.0 /100 WBC (0.0-0.2); Platelet Count 336 K/mm3 (150-400); RDW Coefficient Variation 14.6 % (11.7-14.2); RDW Standard Deviation 49.7 fL (35.1-46.3)
[2025-05-09] MEDS ORDERED: ABILIFY5 MG PO (11:42)
[2025-05-09 11:56] LABS: Ethanol (Alcohol), Blood, Med <3 mg/dL; Salicylate <1.7 mg/dL (2.8-20.0)
[2025-05-09 12:00] LABS: Acetaminophen, Random <2.0 ug/mL (10.0-30.0); Alanine Aminotransfer (ALT/SGP 35 U/L (12-78); Albumin, Blood 3.6 g/dL (3.4-5.0); Albumin/Globulin Ratio 0.9 (0.8-1.8); Anion Gap 7 mmol/L (3-11); Aspartate Aminotrans (AST/SGOT 25 U/L (12-37); Bilirubin, Total 1.3 mg/dL (0.1-1.0); Blood Urea Nitrogen 20 mg/dL (8-24); CO2, Blood 23 mmol/L (21-32); Calcium, Blood 8.5 mg/dL (8.5-10.1); Chloride, Blood 112 mmol/L (98-108); Creatinine, Blood 0.70 mg/dL (0.60-1.20); Globulin, Blood 3.9 g/dL (2.2-4.0); Glucose, Blood 167 mg/dL (70-99); Potassium, Blood 3.2 mmol/L (3.5-5.5); Sodium, Blood 139 mmol/L (136-145); Total Protein, Blood 7.5 g/dL (6.4-8.2)
[2025-05-09 13:46] LABS: Influenza A, PCR NEGATIVE (NEGATIVE); Influenza B, PCR NEGATIVE (NEGATIVE); Resp Syncytial Virus, PCR NEGATIVE (NEGATIVE); SARS-Cov-2 (COVID-19) PCR, MMC NEGATIVE (NEGATIVE)
[2025-05-09 14:03] LABS: Source, Urine Clean Catch
[2025-05-09 14:07] LABS: Bilirubin, Urine Neg (Neg); Color, Urine Yellow (P-Yellow); Glucose Qualitative, Urine Neg (Neg); Ketones, Urine Neg (Neg); Leukocyte Esterase, Urine Neg (Neg); Protein, Urine 2+ (Neg); Specific Gravity, Urine 1.030 (1.003-1.022); Urobilinogen, Urine 2+ (Normal)
[2025-05-09 14:16] LABS: White Blood Cells, Urine 0-2 /hpf (0-5)
[2025-05-09 14:25] LABS: U Amphetamine Screen Not Detected; U Barbituate Screen Not Detected; U Benzodiazapine Screen Not Detected; U Buprenorphine Screen Not Detected; U Cannabinoids Screen DETECTED; U Cocaine Screen Not Detected; U Methadone Screen Not Detected; U Methamphetamine Screen DETECTED; U Opiates Screen Not Detected; U Oxycodone Screen Not Detected; U Phencyclidine Screen Not Detected
== END 2025-05-09 21:46 | disposition other institution (70) ==
LOC: ER 10:38 → EOR 13:05
PROVIDERS: Physician Assistant; ADMIT Emergency Medicine
DX: F32.A Depression, unspecified (principal); R45.851 Suicidal ideations; R44.0 Auditory hallucinations; G40.909 Epilepsy, unspecified, not intractable, without status epilepticus; F17.210 Nicotine dependence, cigarettes, uncomplicated; Z79.899 Other long term (current) drug therapy
CPT/HCPCS: 80053; 80320; 81001; 85025; 86592; 87637; 99285; G0378; G0480

== ENCOUNTER 2025-05-09 15:18 | Inpatient (IN) | payer OTHER ==
[~2025-05-09] VITALS: Ht 193 cm; Wt 81.5 kg
[~2025-05-09 15:18] MED LIST changes: +ABILIFY5 MG PO
[2025-05-09] MEDS ORDERED: Aluminum Hydroxide 320MG/5ML 473 ML PO PRN (21:35)
[2025-05-09] MEDS ORDERED: DiphenhydrAMINE HCl 50 MG/ML 1ML Vial IM PRN ×2 (21:35→21:40)
[2025-05-09] MEDS ORDERED: Polyethylene Glycol 3350 17 gm PO PRN (21:35)
[2025-05-09] MEDS ORDERED: Ondansetron 4 MG SoluTab MM PRN (21:35)
[2025-05-09] MEDS ORDERED: Haloperidol Lactate Inj. 5 MG/ML Injection IM PRN (21:40)
[2025-05-09 21:49] VITALS: BP 129/94
[2025-05-09 22:10] VITALS: BP 129/94
--- NOTE | 2025-05-09 23:00 | NUR ---
ADMIT AT 2146 PATIENT ARRIVED TO [facility] FROM ED, WITH RADAMES SHETTY AND . PATIENT COOPERATIVE WITH INTAKE PROCESS. SKIN CHECK DONE WITH REMI Portillo RN. PATIENT CHANGING INTO PATIENT SCRUBS WITHOUT DIFFICULTY. DURING INTAKE QUESTIONS CONVERSATION DIFFICULT TO FOLLOW AT TIMES DUE TO PATIENT BEING TANGENTIAL. PATIENT VERBALIZED THAT HE IS NO LONGER HAVING AUDITORY HALLUCINATIONS, VERBALIZING THAT "THE VOICES COME WHEN I'M HIGH" PATIENT VERBALIZED THAT HE CONTINUES TO FEEL SI, BUT WITH NO PLAN. VERBALIZED THAT HE "WANTED TO GET LOST AND BECAUSE EVERYONE IS TALKING DOWN TO ME, AND ACCUSING ME OF DOING THINGS" AND THAT "METH MAKES ME SAY THINGS". DENIES HI FEELINGS. DENIES AVH AT THIS TIME. AFTER EATING A SNACK PATIENT BECOMING VERY TIRED, AND HAVING DIFFICULTY STAYING AWAKE WHILE FINISHING INTAKE QUESTIONS. PATIENT GIVEN TOUR OF UNIT AND SHOWN TO HIS BED AND INTRODUCED TO HIS ROOMMATE. PATIENT APPEARS TO FALL TO SLEEP QUICKLY, RESP EVEN AND UNLABORED. CONTINUE TO MONITOR Q15MIN
--- NOTE | 2025-05-10 04:36 | NUR ---
SHIFT SUMMARY PATIENT GOING TO BED AFTER ADMIT COMPLETE. PATIENT DENIES FURTHER SI HE WAS GOING TO BED, DENIES HI. DENIES AVH. APPEARS TO BE SLEEPING WELL T/O NIGHT RESP EVEN AND UNLABORED WITH OCCASIONAL SNORE. CONTINUE TO MONITOR Q15MIN.
[2025-05-10 08:50] LABS: CHOL/HDL RATIO 3.2; Cholesterol 269 mg/dL (50-200); HDL Cholesterol 83 mg/dL (>39); LDL/HDL RATIO 2.2; Low Density Lipoprotein Chol 181 mg/dL (0-110); Triglycerides 26 mg/dL (30-160); Very Low Density Lipoprot Chol 5 mg/dL (6-32)
[2025-05-10] MEDS ORDERED: Multivitamins 1 Tab PO SCH (09:00)
[2025-05-10 09:17] VITALS: BP 122/90
--- NOTE | 2025-05-10 13:25 | NUR ---
PCI COMMUNICATION: REMI PCI WITH [employer] REQUESTED THAT PART OF PATIENTS CARE PLAN THAT HE CONTACTS HIS MOTHER TO FIND OUT WHAT RULES HE WILL NEED TO FOLLOW IN ORDER TO GO TO HER HOUSE.
--- NOTE | 2025-05-10 16:30 | NUR ---
PCI INFORMATION, CALL WITH MOTHER. PT CALLED HIS MOM TO ASK ABOUT THE RULES FOR HIM TO RETURN HOME. WHILE ON THE PHONE WITH HER HE HANDED THE PHONE TO THIS RN AND SAID "SHE WANTS TO TALK TO YOU, CAN YOU TALK TO HER". PT MOTHER DISCUSSED THAT PT HAS BEEN A "REVOLVING DOOR" COMING AND GOING FROM HER HOUSE. SHE SAID SHE ISN'T SURE IF PATIENT WILL BE ABLE TO RETURN HOME AND SHE IS UNABLE TO PROVIDE SPECIFIC RULES IN ORDER FOR HIM TO. SHE REPORTED THAT PT WAS ADOPTED ALONG WITH HIS BROTHER AT AGES, 3, 5 AND 7 AND THEIR FATHER HAD A DIAGNOSIS OF SCHIZOPHRENIA.
--- NOTE | 2025-05-10 18:23 | NUR ---
SHIFT SUMMARY: PT ALERT, ORIENTED AND COOPERATIVE WITH CARE. HE ENDORSES SI BUT DENIES PLAN OR INTENT. DENIES HALLUCINATIONS. PT STATES THAT HIS MOOD IS "SAD". HE SPENT TIME PACING IN THE HALLS, FIDGETING AND APPEARED ANXIOUS AT TIMES. PT REQUESTED MEDICATION FOR ANXIETY THIS AM AND WAS MEDICATED WITH VISTARIL PRN PER EMAR. PT ATTEMPTED TO ATTEND GROUPS BUT DID NOT REMAIN IN THE ENTIRE TIME. HE WAS PRESENT ON THE UNIT AND ATTENDED MEALS.
[2025-05-10 20:19] VITALS: BP 122/80
--- NOTE | 2025-05-11 04:26 | NUR ---
SHIFT SUMMARY PATIENT IN HIS ROOM AT BEGINNING OF SHIFT, VERBALIZED THAT HE IS JUST TIRED. DENIES SI, HI, OR AVH. VERBALIZED THAT HE IS "FEELING BETTER" CONTINUES TO FEEL SAD. PATIENT NEEDING ENCOURAGEMENT TO GET UP AND GO TO SNACK, RETURNING TO BED AFTER EATING. APPEARS TO BE SLEEPING WELL T/O NIGHT RESP EVEN AND UNLABORED. CONTINUE TO MONITOR Q15MIN
[2025-05-11 08:08] VITALS: BP 143/96
--- NOTE | 2025-05-11 08:30 | NUR ---
PT C/O INCREASED ANXIETY THIS MORNING WHICH HE RATES AT 10/10. STATES THAT HE DIDN'T SLEEP WELL LAST NIGHT AND WOKE WITH NIGHT TERRORS. ENCOURAGED PT TO COMMUNICATE WITH STAFF IF THIS HAPPENS SO THAT WE CAN ASSIST HIM. PT MEDICATED PER EMAR WITH PRN FOR MASS SCORE OF 3. PT RETURNED TO HIS ROOM AND STATED HE WAS GOING TO TRY TO SLEEP.
--- NOTE | 2025-05-11 16:33 | NUR ---
SHIFT SUMMARY: PT ALERT, ORIENTED AND COOPERATIVE [facility] CARE. HE DENIES SI, HI AND AVH. STATES THAT HE IS "NOT SAD" TODAY. HE AFFECTED IS ELEVATED AND HE IS TALKATIVE AND SMILING. PT ATTENDED MEALS AND WAS PRESENT ON THE UNIT. HE SHOWERED THIS AM AND SPENT TIME PACING IN THE HALLWAY. WHILE AMBULATING IN THE [place] IN THE EVENING PT REPORTED THAT HE NEEDED NEW SCRUBS, THAT SOMETIMES HE THINKS HE IS DONE URINATING BUT THEN HAS AN ACCIDENT. PT PROVIDED WITH NEW SCRUBS AND ATTENDS. PT HAD UA DONE PRIOR TO ADMISSION THAT DID NOT SHOW ANYTHING ABNORMAL. PT STATES THAT THIS HAS HAPPENED IN THE PAST WELL. PT MADE A PHONE CALL IN THE EVENING AND WAS ACTIVE IN THE UNIT MILIEU.
[2025-05-11 19:39] VITALS: BP 129/82
--- NOTE | 2025-05-12 04:51 | NUR ---
SHIFT SUMMARY : PT AA/O X3. PT DENIED TO BE SI, HI, AND AVH. UP IN THE HALLWAY PACING AT THE BEGINNING OF THE SHIFT. PT DECLINED SNACK THIS EVENING. HE SAID HE ATE 2 [employer]AMBUGERS FOR DINNER AND WAS STILL FULL. PT STATED THAT HE WANTS TO BE HEALTHY AGAIN AND TO STOP USING METH. SAYS HE NEEDS TO GET HIS LIFE TOGETHER. SLEPT ALL NIGHT SINCE GOING TO BED. DECLINED OFFER OF SLEEP AID OF MEDICATIONS. WILL CONTINUE TO MONITOR Q 15 MIN FOR SAFETY AND WELLNESS.
[2025-05-12 07:39] VITALS: BP 139/96
--- NOTE | 2025-05-12 17:29 | NUR ---
SHIFT SUMMARY PT IS AA&O TO PERSON PLACE AND SITUATION. HE IS PLEASANT AND COOPERATIVE WITH CARE. SPEECH AND EYE CONTACT ARE APPROPRIATE. HE REPORTS MOOD GOOD, AFFECT BORDERS EUPHORIC AT TIMES. HE DOES EXPRESS CONCERN ABOUT NOT BEING ABLE TO RETURN HOME, BUT CHANGES TOPIC QUICKLY. PT DENIES SI, AVH. HE HAS BEEN UP TO MEALS, GROUP, AND SHOWERS. HE HAS BEEN INTERACTING WELL WITH PEERS AND STAFF. HE DENIES ANY NEEDS OR CONCERNS AT THIS TIME. WILL CONTINUE POC
[2025-05-12 19:21] VITALS: BP 149/88
--- NOTE | 2025-05-13 05:38 | NUR ---
SHIFT SUMMARY Pt is A&O, calm, cooperative, eye contact is appropriate. Pt s mood is somewhat anxious, I wish I could get out of here, affect is constricted. Pt endorses passive SI thoughts that come and go; he denies HI, and hallucinations. Pt denies current pain. Pt was active during the evening, walking around the milieu and using the virtual reality goggles. Pt requested PRN trazodone this evening. Staff continues to monitor q15m for safety and wellness.
[2025-05-13 08:07] VITALS: BP 140/104
--- NOTE | 2025-05-13 08:35 | NUR ---
Patient reports that he drank a bottle of mouth wash last night, after seeing that the bottle said poison. Patient states that his desire to is 10/10. He denies that he has a plan or intent. I asked him if he intended to when he drank the mouth wash after seeing the word poison on the bottle and he states "not really". He rates his depression as 10/10, anxiety 3/10. Anxiety was 8/10 before abilify was ordered upon entering [facility]. Patient states that he would be willing to try an antidepressant in addition to his abilify. Hygeine items will be removed from his room for now, and checked out when needed.
[2025-05-13 19:49] VITALS: BP 146/100
--- NOTE | 2025-05-13 23:48 | NUR ---
SHIFT SUMMARY Pt is A&O, calm, cooperative, eye contact is appropriate. Pt s mood is good, but he presents as depressed, affect is constricted. Pt denies SI thoughts today; he also denies HI, and hallucinations, but was observed pacing the desai talking to himself. Pt endorses pain 3/10w in right side of torso and will ask for a PRN if it interferes with his sleep. Pt requested PRN trazodone and melatonin for sleep tonight. At about 2044 pt requested PRN ibuprofen for pain before he retired to his room. Staff continues to monitor q15m for safety and wellness.
--- NOTE | 2025-05-14 05:06 | NUR ---
SHIFT SUMMARY: ASSUMED CARE OF PT AT 0000. PT HAS BEEN SLEEPING WITHOUT ANY INTERRUPTION SINCE TAKING OVER. WILL CONTINUE TO MONITOR Q 15 MIN FOR SAFETY AND WELLNESS.
[2025-05-14 07:41] VITALS: BP 153/110
[2025-05-14 07:45] VITALS: BP 146/96
--- NOTE | 2025-05-14 12:46 | NUR ---
PATIENT REPORTS SHARP PAIN ON THE LOWER MOST AREA OF HIS RIGHT RIB. A CONSULT WAS ORDERED. THEN, THE PATIENT REMEMBERED BUMPING HIS RIB ON THE CHAIR WHILE EXERCISING. CONSULT WAS CANCELLED. THERE ARE THREE SMALL SPLOTCHY RASH AREAS, SMALL RAISED PAPULES ON THAT SAME AREA. THE PROVIDER APPROVED HYDROCORTISONE CREAM.
--- NOTE | 2025-05-14 17:35 | NUR ---
Patient is alert and orientated this shift. He denies SI, HI and Hallucinations. Patient spoke alot about how his addiction is affecting his life. Patient is contemplating treatment for chem/dep but states he has tried treatment in the past and it wasn't helpful. Patient is conflicted about going back to the street stating that "Thats where I am comfortable" "I can walk and can (pick cans for money)', but also states that maybe his mother will let him come home. Patient had a visit with his mom today and she left after only 15 minutes stating that the patient thought she would let him come back to her house (and she will not). Patients mom says that she does not want to enable her son, but is supportive as she wants to see him succeed with his treatment. Patient has complained of pain in the right lower rib area- usually rated between 3-4. He has alternated ibu and tylenol for pain control. The Ibu is more effective. Medications increased today, with Zoloft bumping up to 50 mg. Patient is tolerating the medications well. Currently the patient relaxing in the day room, watching TV with peers.
[2025-05-14 19:25] VITALS: BP 153/106
--- NOTE | 2025-05-15 06:15 | NUR ---
SHIFT SUMMARY Pt is A&O, calm, cooperative, eye contact is appropriate. Pt s mood is "pretty good," but he presents as depressed, affect is constricted. Pt denies SI, HI, and hallucinations today. He endorses right rib pain 3/10w and received PRN APAP with HS meds. Pt stated that he tweeked his ribs while doing dips. Pt requested PRN trazodone and melatonin for sleep tonight. Pt mostly stayed in his room this evening, but came out to make needs known. Pt received PRN ibuprofen at 2353 and APAP at 0524, both times for pain 3. Staff continues to monitor q15m for safety and wellness.
[2025-05-15 09:29] VITALS: BP 154/97
--- NOTE | 2025-05-15 13:02 | NUR ---
NURSE NOTE PT EXAMINED BY HOSPITALIST FOR PAINFUL RASH. DR. KHALIL STATES PT HAS SHINGLES. PT TO BE DIRECT ADMIT TO HOSPITAL FOR SHINGLES.
--- NOTE | 2025-05-15 13:28 | NUR ---
IMPORTANT DISCHARGE INFORMATION PATIENT TO BE DISCHARGED TO MEDICAL AT [facility]. HE HAS FOLLOW UP KAREN AT THE [facility] ON 05/15/25 AT 3:30PM WITH DR. CARPENTER. MENTAL HEALTH REFERRAL PLACED FOR [facility] FOLLOW UP. PATIENT'S PHARMACY: [facility] [phone] PATIENT RESOURCES: [facility], [facility], [facility].
--- NOTE | 2025-05-15 13:31 | NUR ---
SHIFT ASSESSMENT: PT WAS IN THE HALLWAY PACING AT THE BEGINING OF THE SHIFT. HE DENIED SI, HI, AVH AND ANXIETY. HE ENDORSED PAIN 3/10w TO A RASH ON HIS ABDOMIN AND BACK. HE DESCRIBED HIS MOOD "GOOD" AND HIS AFFECT WAS CONGRUENT TO HIS STATED MOOD. PT IS ACTIVE IN THE PT MILIEU AND HAS BEEN ATTENDING GROUPS. PT IS PLEASANT AND COOPERATIVE.
[2025-05-15] MEDS ORDERED: SERT50 PO (15:45)
[2025-05-15] MEDS ORDERED: Neurontin 300300 MG PO (15:45)
[2025-05-15] MEDS ORDERED: 1/2 NS 250ml250 ML (15:46)
[2025-05-15] MEDS ORDERED: VALA500 PO (15:46)
--- NOTE | 2025-05-15 16:10 | NUR ---
DISCHARGE SUMMARY MEDICATIONS FAXED TO [facility] PER PT REQUEST. PT SIGNED ACKNOWLEDGEMENT FORM FROM D/C PACKET. HE STATES HE UNDERSTANDS D/C INSTRUCTIONS. PT GIVEN BELONGINGS FROM BIN AND BELONGINGS FORM SIGNED. HE DRESSED HIMSELF IN HIS CLOTHES AND AMBULATED OUT TO MEDICAL TRANSPORT ARRANGED THROUGH [facility]. PT TO TRANSPORT TO [facility]
== END 2025-05-15 16:10 | disposition home or self-care (01) | DRG 885 ==
LOC: BHU 15:18
PROVIDERS: ADMIT Psychiatry & Neurology Psychiatry
DX: F33.3 Major depressive disorder, recurrent, severe with psychotic symptoms (principal); Z59.01 Sheltered homelessness; F15.10 Other stimulant abuse, uncomplicated; F10.20 Alcohol dependence, uncomplicated; F17.210 Nicotine dependence, cigarettes, uncomplicated; B02.9 Zoster without complications; F41.9 Anxiety disorder, unspecified; Z60.9 Problem related to social environment, unspecified; Z79.899 Other long term (current) drug therapy; Z86.14 Personal history of Methicillin resistant Staphylococcus aureus infection
CPT/HCPCS: 36415; 80061; 83036; A9270

== ENCOUNTER 2025-07-19 15:08 | Emergency (ER) | payer OTHER ==
[~2025-07-19] VITALS: Ht 190.5 cm; Wt 81.7 kg
[~2025-07-19 15:08] MED LIST changes: +1/2 NS 250ml250 ML; +Neurontin 300300 MG PO; +SERT50 PO; +VALA500 PO
[2025-07-19 17:08] LABS: Source, Urine Clean Catch
[2025-07-19 17:19] LABS: Bilirubin, Urine Neg (Neg); Color, Urine Yellow (P-Yellow); Glucose Qualitative, Urine Neg (Neg); Ketones, Urine Neg (Neg); Leukocyte Esterase, Urine Neg (Neg); Protein, Urine 1+ (Neg); Specific Gravity, Urine 1.025 (1.003-1.022); Urobilinogen, Urine NORM (Normal)
[2025-07-19 17:56] VITALS: BP 118/90
== END 2025-07-19 17:56 | disposition home or self-care (01) ==
LOC: ER 15:08
PROVIDERS: Student in an Organized Health Care Education/Training Program
DX: R82.998 Other abnormal findings in urine (principal); Z79.899 Other long term (current) drug therapy; F17.210 Nicotine dependence, cigarettes, uncomplicated
CPT/HCPCS: 99283

== ENCOUNTER 2025-08-10 22:00 | Emergency (ER) | payer OTHER ==
[~2025-08-10] VITALS: Ht 193 cm; Wt 81.4 kg
[2025-08-10 22:03] VITALS: BP 145/94
[2025-08-10] MEDS ORDERED: CEPH500 PO (23:15)
[2025-08-10] MEDS ORDERED: Trimethoprim/Sulfamethoxazole DS Tab PO ONE (23:15)
[2025-08-10] MEDS ORDERED: BACTRIM DS TAB1 EAC1 PO (23:15)
== END 2025-08-10 23:29 | disposition home or self-care (01) ==
LOC: ER 22:00
DX: L03.114 Cellulitis of left upper limb (principal); Z79.899 Other long term (current) drug therapy; F17.210 Nicotine dependence, cigarettes, uncomplicated
CPT/HCPCS: 99282; A9270